=== PATIENT | male | born 1985 | race Two or more races ===

== ENCOUNTER 2021-10-19 11:49 | Emergency (ER) | payer BC, OTHER ==
[2021-10-19 14:37] VITALS: BP 123/85
[2021-10-19] MEDS ORDERED: METH750T22 PO (15:38)
[2021-10-19] MEDS ORDERED: PRED20TA2 PO (15:38)
[2021-10-19] MEDS ORDERED: GABA300C10 PO (15:38)
== END 2021-10-19 15:31 | disposition home or self-care (01) ==
LOC: ER 11:49
DX: S16.1XXA Strain of muscle, fascia and tendon at neck level, initial encounter (principal); S39.012A Strain of muscle, fascia and tendon of lower back, initial encounter; M50.30 Other cervical disc degeneration, unspecified cervical region; Z79.899 Other long term (current) drug therapy; V43.52XA Car driver injured in collision with other type car in traffic accident, initial encounter; Y93.89 Activity, other specified; Y92.410 Unspecified street and highway as the place of occurrence of the external cause; Y99.8 Other external cause status
CPT/HCPCS: 70450; 72125; 72131